=== PATIENT | female | born 1990 | race Caucasian/White ===

== ENCOUNTER → 2021-01-08 03:59 | Outpatient (CLI) | payer OTHER, SELFPAY ==
[2021-01-08 20:06] LABS: SARS-CoV-2 RNA PCR Negative
== END ==
PROVIDERS: PCP Nurse Practitioner Adult Health; Visit Provider Internal Medicine Gastroenterology
DX: Z01.812 Encounter for preprocedural laboratory examination (principal); Z20.822 Contact with and (suspected) exposure to COVID-19
CPT/HCPCS: C9803; U0003; U0005

== ENCOUNTER 2021-01-11 03:18 | Day surgery (SDC) | payer OTHER, SELFPAY ==
[2021-01-02 11:09] VITALS: BMI 22.8
[2021-01-11 08:41] VITALS: BP 119/70; PULSE 72; RESP 18; TEMP 37; O2SAT 100; BMI 21.4
[2021-01-11] MEDS: LACTATED RINGERS 1,000 ML 150 ML IV CONT (08:54)
--- NOTE | 2021-01-11 09:34 | WPDANESEPPF ---
Anes - Initial Pre Proc Eval Procedure: Operation Date: 01/11/21 10:00 Proposed Procedures p Colonoscopy - Aki Pantoja MD Date/Time: 01/11/21 09:34 Surgeon: Aki Pantoja MD Pre Op Diagnosis: blood in stool, hx of colon polyp Patient Data Age: 30 Gender: F Height: 5 ft 7 in Weight: 62 kg Last Vital Signs Temp 98.6 F 01/11/21 08:41 Pulse 72 01/11/21 08:41 Resp 18 01/11/21 08:41 BP 119/70 01/11/21 08:41 Pulse Ox 100 01/11/21 08:41 Allergies Allergy/AdvReac Type Severity Reaction Status Date / Time [place] AdvReac Gastrointestinal Uncoded 01/11/21 08:39 Upset Home Medications Medication Instructions Recorded Confirmed Type escitalopram oxalate 10 mg PO DAILY 01/02/21 01/11/21 History lactobacillus combination no.4 3,000 mmu cells PO DAILY 01/02/21 01/11/21 History [Probiotic] multivitamin 1 tablet PO DAILY 01/02/21 01/11/21 History Patient hx anesthesia problems: none Family hx anesthesia problems: none PMFSH Past Medical History Medical History (Updated 01/11/21 @ 09:26 by Isauro Cervantes MD) Anxiety Depression Social History Social History (System 09/13/19 @ 17:14 by Lizeth Lei) Alcohol intake: current Drinks per week: 1 Substance use: current Substance use type: marijuana Other substance usage details: smoke Last use: 01/01/2021 Living arrangements: with family Spiritual care concerns: No Anes - Eval Final PreProcedure Day of Procedure 01/11/21 09:34 Patient weight: normal Heart: regular rate and rhythm Lungs: clear to auscultation Airway: Mallampati scale class II Neurological: alert and oriented Last oral intake: >/= 8 hours ASA classification: II Emergent: no Anesthetic plan: proceed Anesthesia type and monitoring: general GIVS and standard monitoring Informed Consent: The patient's anesthetic plan and its attendant risks and benefits were discussed with the patient/family/POA. Questions were solicited and answers provided to the satisfaction of the patient/family/POA.
--- NOTE | 2021-01-11 09:35 | PM.HPGS ---
History of Present Illness History of Present Illness Consent: Risks, benefits, and alternatives have been discussed and questions answered. Patient agrees to proceed with procedure. Chief complaint: blood in stool, hx of colon polyp Narrative: Janet Jo is a 30 year old female large sigmoid polyp removed 1 year ago Review of Systems Constitutional: Constitutional: Denies headache(s) and Denies weakness Eyes: Eyes: Denies blurry vision ENT: Reports Normal hearing present, Denies headache(s) and Denies neck pain Cardiovascular: Cardiovascular: Denies chest pain and Denies dyspnea Respiratory: Respiratory: Denies dyspnea Gastrointestinal: Gastrointestinal: Reports no additional gastrointestinal complaints Genitourinary: Genitourinary: Denies dysuria Musculoskeletal: Musculoskeletal: Denies neck pain Integumentary/Breasts: Skin/Breast: Denies dry skin Neurologic: Reports Normal hearing present, Denies headache(s) and Denies weakness Psychiatric: Psychiatric: Denies anxiety Endocrine: Endocrine: Denies change in body appearance Hematologic/Lymphatic: Hematologic/Lymphatic: Denies easy bleeding Allergic/Immunologic: Allergic/Immunologic: Denies urticaria PMFSH Past Medical History Medical History (Updated 01/11/21 @ 09:35 by Aki Pantoja MD) Adenomatous colon polyp Anxiety Depression Social History Social History (System 09/13/19 @ 17:14 by Lizeth Lei) Alcohol intake: current Drinks per week: 1 Substance use: current Substance use type: marijuana Other substance usage details: smoke Last use: 01/01/2021 Living arrangements: with family Spiritual care concerns: No Meds Home Medications and Allergies Home Medications Medication Instructions Recorded Confirmed Type escitalopram oxalate 10 mg PO DAILY 01/02/21 01/11/21 History lactobacillus combination no.4 3,000 mmu cells PO DAILY 01/02/21 01/11/21 History [Probiotic] multivitamin 1 tablet PO DAILY 01/02/21 01/11/21 History Allergies Allergy/AdvReac Type Severity Reaction Status Date / Time [place] AdvReac Gastrointestinal Uncoded 01/11/21 08:39 Upset Vital Signs Vital Signs - 24 hr 01/11/21 08:41 Temperature 98.6 F Pulse Rate 72 Respiratory Rate 18 Blood Pressure 119/70 Pulse Oximetry 100 Exam Const: General: comfortable and no acute distress HENMT: General nose exam: Normal nares present Eyes: General: appearance normal, both eyes and all related structures Neck: Neck: no JVD Resp: Auscultation: clear to auscultation bilaterally Cardio: Rate: regular rate Rhythm: regular rhythm GI: Inspection: non-distended GI Palp: Yes Soft to palpation Skin: General skin exam: normal color Neuro: General: gait normal Speech: normal speech Extrem: General: normal to inspection Psych: Mental Status: mental status grossly normal Assessment and Plan Assessment and plan (1) Adenomatous colon polyp: Code(s): D12.6 - Benign neoplasm of colon, unspecified Status: Acute Assessment and Plan: colonoscopy
[2021-01-11 09:56] VITALS: BP 91/59; PULSE 63; RESP 18; O2SAT 100
[2021-01-11 10:06] VITALS: BP 96/62; PULSE 60; RESP 18; O2SAT 100
[2021-01-11 10:16] VITALS: BP 108/68; PULSE 60; RESP 18; O2SAT 100
== END 2021-01-11 10:20 | disposition home or self-care (01) ==
PROVIDERS: PCP Nurse Practitioner Adult Health; Visit Provider Internal Medicine Gastroenterology
PROC: 0DJD8ZZ Inspection of Lower Intestinal Tract, Via Natural or Artificial Opening Endoscopic (ICD-10-PCS; CPT 45378; principal; 2021-01-11 10:00)
DX: Z12.11 Encounter for screening for malignant neoplasm of colon (principal); K64.8 Other hemorrhoids; Z86.010 Personal history of colon polyps; F41.8 Other specified anxiety disorders; F12.90 Cannabis use, unspecified, uncomplicated
CPT/HCPCS: 45378; C9803; J2001; J2704; J7120; U0003; U0005

== ENCOUNTER 2024-05-30 01:57 | Day surgery (SDC) | payer OTHER, SELFPAY ==
[2024-05-05 14:50] VITALS: BMI 23.4
[2024-05-30 07:46] VITALS: BP 117/76; PULSE 69; RESP 20; TEMP 35.9; O2SAT 98; BMI 22.4
[2024-05-30 07:52] LABS: BEDSIDEPREGUCG Negative (Negative)
[2024-05-30] MEDS: LACTATED RINGERS 1,000 ML 150 ML IV CONT (08:04)
--- NOTE | 2024-05-30 08:09 | P.PNAN_ITS ---
Anes - Initial Pre Proc Eval Procedure: Operation Date: 05/30/24 09:00 Proposed Procedures p Colonoscopy - Aki Pantoja MD Date/Time: 05/30/24 08:09 Surgeon: Aki Pantoja MD Pre Op Diagnosis: personal history colon polyps Patient Data Age: 33 Gender: F Height: 1.73 m Weight: 67.1 kg Last Vital Signs Temp 35.9 C L 05/30/24 07:46 Pulse 69 05/30/24 07:46 Resp 20 05/30/24 07:46 BP 117/76 05/30/24 07:46 Pulse Ox 98 05/30/24 07:46 O2 Del Method Room Air 05/30/24 07:46 Allergies Allergy/AdvReac Type Severity Reaction Status Date / Time [place] AdvReac Gastrointestinal Uncoded 05/30/24 07:44 Upset Home Medications Medication Instructions Recorded Confirmed Type lactobacillus combination no.4 3 3,000 mmu cells PO DAILY 01/02/21 05/30/24 History billion cell capsule (Probiotic) multivitamin 1 tablet PO DAILY 01/02/21 05/30/24 History biotin 1 mg tablet 1 mg PO DAILY 05/05/24 05/30/24 History bupropion HCl 150 mg 24 hr tablet, 150 mg PO DAILY 05/05/24 05/30/24 History extended release escitalopram oxalate 10 mg tablet 20 mg PO DAILY 05/05/24 05/30/24 History glucosamine sulfate 500 mg tablet 500 mg PO DAILY 05/05/24 05/30/24 History (Glucosamine) Laboratory Tests 05/30/24 07:49 POC Urine HCG, Qual Negative (Negative) Patient hx anesthesia problems: none Family hx anesthesia problems: none Results Review: All pre-operative results and documents have been reviewed as part of the pre- operative evaluation. [facility] Past Medical History Medical History (Updated 01/11/21 @ 09:35 by Aki Pantoja MD) Adenomatous colon polyp Anxiety Depression Social History Social History Smoking status: Never smoker Alcohol intake: current Drinks per week: 1 Substance use: current Substance use type: marijuana Other substance usage details: Pinch hit nightly Last use: 05/04/2024 Living arrangements: with family Spiritual care concerns: No Anes - Eval Final PreProcedure Day of Procedure 05/30/24 08:09 Patient weight: normal Heart: regular rate and rhythm Lungs: clear to auscultation Airway: Mallampati scale class II Neurological: alert and oriented Last oral intake: >/= 8 hours ASA classification: II Emergent: no Anesthetic plan: proceed Anesthesia type and monitoring: general GIVS and standard monitoring Results Review: All pre-operative results and documents have been reviewed as part of the pre- operative evaluation. Informed Consent: The patient's anesthetic plan and its attendant risks and benefits were discussed with the patient/family/POA. Questions were solicited and answers provided to the satisfaction of the patient/family/POA.
--- NOTE | 2024-05-30 08:44 | PM.HPGS ---
History of Present Illness History of Present Illness Consent: Risks, benefits, and alternatives have been discussed and questions answered. Patient agrees to proceed with procedure. Chief complaint: personal history colon polyps Narrative: Janet Jo is a 33 year old female with large colon polyp in 2019, repeat colonoscopy 2020 normal Review of Systems Review of Systems: All systems reviewed & are unremarkable except as noted in HPI and below PMFSH Past Medical History Medical History (Updated 01/11/21 @ 09:35 by Aki Pantoja MD) Adenomatous colon polyp Anxiety Depression Social History Social History Smoking status: Never smoker Alcohol intake: current Drinks per week: 1 Substance use: current Substance use type: marijuana Other substance usage details: Pinch hit nightly Last use: 05/04/2024 Living arrangements: with family Spiritual care concerns: No Meds Home Medications and Allergies Home Medications Medication Instructions Recorded Confirmed Type lactobacillus combination no.4 3 3,000 mmu cells PO DAILY 01/02/21 05/30/24 History billion cell capsule (Probiotic) multivitamin 1 tablet PO DAILY 01/02/21 05/30/24 History biotin 1 mg tablet 1 mg PO DAILY 05/05/24 05/30/24 History bupropion HCl 150 mg 24 hr tablet, 150 mg PO DAILY 05/05/24 05/30/24 History extended release escitalopram oxalate 10 mg tablet 20 mg PO DAILY 05/05/24 05/30/24 History glucosamine sulfate 500 mg tablet 500 mg PO DAILY 05/05/24 05/30/24 History (Glucosamine) Allergies Allergy/AdvReac Type Severity Reaction Status Date / Time [place] AdvReac Gastrointestinal Uncoded 05/30/24 07:44 Upset Vital Signs Vital Signs - 24 hr 05/30/24 07:46 Temperature 96.7 F L Pulse Rate 69 Respiratory Rate 20 Blood Pressure 117/76 Pulse Oximetry 98 Oxygen Delivery Room Air Exam Const: General: comfortable and no acute distress HENMT: Face/Nose/Sinus: Normal nares present Eyes: General: appearance normal, both eyes and all related structures Neck: Neck: no JVD Resp: Auscultation: clear to auscultation bilaterally Cardio: Rate: regular rate Rhythm: regular rhythm GI: Inspection: non-distended GI Palp: Yes Soft to palpation Skin: General skin exam: normal color Neuro: General: gait normal Speech: normal speech Extrem: General: normal to inspection Psych: Mental Status: mental status grossly normal Assessment and Plan Assessment and plan (1) Adenomatous colon polyp: Code(s): D12.6 - Benign neoplasm of colon, unspecified Status: Acute Assessment and Plan: colonoscopy
[2024-05-30 09:11] VITALS: BP 93/54; PULSE 56; RESP 18; O2SAT 100
[2024-05-30 09:21] VITALS: BP 97/61; PULSE 56; RESP 20; O2SAT 100
[2024-05-30 09:31] VITALS: BP 99/66; PULSE 52; RESP 18; O2SAT 95
== END 2024-05-30 09:36 | disposition home or self-care (01) ==
PROVIDERS: Anesthesiology; Visit Provider Internal Medicine Gastroenterology
PROC: 0DJD8ZZ Inspection of Lower Intestinal Tract, Via Natural or Artificial Opening Endoscopic (ICD-10-PCS; CPT 45378; principal; 2024-05-30 09:00)
DX: Z09 Encounter for follow-up examination after completed treatment for conditions other than malignant neoplasm (principal); F41.9 Anxiety disorder, unspecified; F32.A Depression, unspecified; Z86.0100 Personal history of colon polyps, unspecified; F12.90 Cannabis use, unspecified, uncomplicated
CPT/HCPCS: 45378; J2704; J7120